=== PATIENT | female | born 1960 | race African-American/Black ===

== ENCOUNTER → 2017-10-26 | Outpatient (CLI) | payer OTHER ==
[2017-10-26 11:14] LABS: HEMATOCRIT 35.4 % (35.0-46.0); HEMOGLOBIN 11.6 GM/DL (11.6-15.3); MEAN CELL VOLUME 88.6 FL (80.0-100.0); MEAN CORPUSCULAR HGB CONC 32.7 % (32.0-36.0); MEAN PLATELET VOLUME 8.2 FL (7.0-11.0); PLATELET COUNT 235 TH/MM3 (150-450); RED BLOOD COUNT 3.99 MIL/MM3 (4.00-5.30); RED CELL DISTRIBUTION WIDTH 13.3 % (11.6-17.2); WHITE BLOOD COUNT 5.4 TH/MM3 (4.0-11.0)
[2017-10-26 11:27] LABS: BILIRUBIN, URINE NEG (NEG); GLUCOSE,URINE NEG (NEG); KETONE, URINE NEG (NEG); NITRITE,URINE NEG (NEG); PH, URINE 5.5 (5.0-8.5); URINE COLOR YELLOW (YELLW/STRAW); URINE LEUKOCYTE ESTERASE NEG (NEG)
[2017-10-26 11:35] LABS: BLOOD, URINE TRACE (NEG)
[2017-10-26 11:37] LABS: MUCUS URINE FEW /lpf (OCC); SQUAMOUS EPITHELIAL CELL URINE <1 /hpf (0-5)
[2017-10-26 11:46] LABS: CHOLESTEROL 132 MG/DL (120-200)
[2017-10-26 11:48] LABS: ALBUMIN 3.2 GM/DL (3.4-5.0); AST (GOT) 56 U/L (15-37); BICARBONATE 23.9 MEQ/L (21.0-32.0); BLOOD UREA NITROGEN 12 MG/DL (7-18); CHLORIDE 113 MEQ/L (98-107); CREATININE 0.77 MG/DL (0.50-1.00); GLOMERULAR FILTRATION RATE 93 ML/MIN (>89); GLUCOSE,FASTING 76 MG/DL (74-99); SODIUM (NA) 146 MEQ/L (136-145)
[2017-10-26 11:50] LABS: ALKALINE PHOSPHATASE 88 U/L (45-117); ALT (GPT) 71 U/L (10-53); CHOLESTEROL/ HDL RATIO 4.27 RATIO; HDL CHOLESTEROL 30.9 MG/DL (40.0-60.0); LDL CHOLESTEROL 88 MG/DL (0-99); TOTAL BILIRUBIN ADULT 0.4 MG/DL (0.2-1.0); TOTAL PROTEIN 5.5 GM/DL (6.4-8.2); TRIGLYCERIDES 66 MG/DL (42-150)
== END ==
LOC: CLAB 10:39
PROVIDERS: ATTEND Hospitalist
DX: K90.0 Celiac disease (principal); Z76.89 Persons encountering health services in other specified circumstances
CPT/HCPCS: 36415; 80053; 80061; 81001; 85027